=== PATIENT | female | born 1970 | race Caucasian/White ===

== ENCOUNTER 2023-06-15 08:25 | Outpatient (CLI) | payer OTHER, SELFPAY | END 2023-06-15 08:26 | disposition home or self-care (01) | PROVIDERS: PCP Nurse Practitioner Family; Visit Provider Nurse Practitioner Family | DX: Z00.00 Encounter for general adult medical examination without abnormal findings (principal); Z13.6 Encounter for screening for cardiovascular disorders; Z13.1 Encounter for screening for diabetes mellitus; Z13.0 Encounter for screening for diseases of the blood and blood-forming organs and certain disorders involving the immune mechanism | CPT/HCPCS: 80053; 80061; 85025 ==

== ENCOUNTER 2023-07-17 11:03 | Outpatient (CLI) | payer OTHER, SELFPAY ==
--- NOTE | 2023-07-17 12:29 | W.ANESCHARGE ---
Anesthesia Charges Start Date/Time Anesthesia Start Date: 07/17/23 Anesthesia Start Time: 12:05 Stop Date/Time Anesthesia Stop Date: 07/17/23 Anesthesia Stop Time: 12:26
--- NOTE | 2023-07-17 12:59 | W.ANESCHARGE ---
Anesthesia Charges Start Date/Time Anesthesia Start Date: 07/17/23 Anesthesia Start Time: 12:05 Stop Date/Time Anesthesia Stop Date: 07/17/23 Anesthesia Stop Time: 12:26
== END 2023-07-17 11:04 | disposition home or self-care (01) ==
LOC: OP CLINIC 11:04
PROVIDERS: PCP Nurse Practitioner Family; Visit Provider Internal Medicine
DX: Z12.11 Encounter for screening for malignant neoplasm of colon (principal)
CPT/HCPCS: 00811; 00812; 45378; J2704

== ENCOUNTER 2023-11-12 15:11 | Outpatient (CLI) | payer OTHER, SELFPAY | END 2023-11-12 15:12 | disposition home or self-care (01) | LOC: NFLDUCREF 15:12 | PROVIDERS: PCP Nurse Practitioner Family; Visit Provider Nurse Practitioner | DX: L02.214 Cutaneous abscess of groin (principal) | CPT/HCPCS: 87070 ==